=== PATIENT | male | born 1975 | race Caucasian/White ===

== ENCOUNTER 2021-01-09 08:53 | Outpatient (CLI) | payer BC, SELFPAY ==
--- NOTE | 2021-01-09 09:30 | ECG_ITS ---
Measurements Intervals [place] Rate: 57 P: 51 HI: 172 QRS: 62 QRSD: 92 T: 37 QT: 372 QTc: 365 Interpretive Statements SINUS BRADYCARDIA DELAYED PRECORDIAL R/S TRANSITION NONSPECIFIC ST ELEVATION IN ANTEROLATERAL LEADS BORDERLINE ECG Electronically Signed On 01-09-2021 10:40:42 CDT by Arslan Osullivan D.O.
== END 2021-01-09 08:54 | disposition home or self-care (01) ==
LOC: ANHSURGERY 08:55
PROVIDERS: PCP Family Medicine; Visit Provider Orthopaedic Surgery
DX: Z01.810 Encounter for preprocedural cardiovascular examination (principal); Z87.891 Personal history of nicotine dependence
CPT/HCPCS: 93005

== ENCOUNTER → 2021-01-12 06:33 | Outpatient (CLI) | payer BC, SELFPAY ==
[2021-01-12 19:16] LABS: SARS-CoV-2 RNA PCR Negative
== END ==
PROVIDERS: PCP Family Medicine; Visit Provider Orthopaedic Surgery
DX: Z01.812 Encounter for preprocedural laboratory examination (principal); Z20.822 Contact with and (suspected) exposure to COVID-19
CPT/HCPCS: C9803; U0003; U0005

== ENCOUNTER 2021-01-15 01:31 | Day surgery (SDC) | payer BC, SELFPAY ==
[2021-01-07 13:33] VITALS: BMI 28.2
--- NOTE | 2021-01-15 09:38 | WPDHPUPDATE1 ---
History and Physical Update Update Date/Time: 01/15/21 09:38 History and Physical has been reviewed, including an updated exam of the patient. There are NO changes in the patient's condition. Risks, benefits, and alternatives have been discussed and questions answered. Patient agrees to proceed with procedure.
--- NOTE | 2021-01-15 10:59 | PM.PROC ---
Procedure Note - Detailed Date of procedure: 01/15/21 Pre-op diagnosis: Right Fifth Trigger Finger Post-op diagnosis: other Procedure performed: Trigger finger release, right fifth. Anesthesia: GLMA and local Surgeon: Cuong Garcia MD Estimated blood loss (mL): 1 Complications: No immediate complications Condition: stable Disposition: PACU Findings: Sedation with general anesthetic was given. The hand was prepped and draped in the usual sterile fashion with a tourniquet was applied to the arm and well-padded. The limb was exsanguinated and the tourniquet inflated to 250 millimeters of mercury. 0.5% Marcaine with epinephrine was injected at the incision site. 2 milliliters were utilized. A longitudinal incision was created over the A1 luly subcutaneous dissection was carried out bluntly. The A1 luly was identified and visualized. It was released with the dissection scissors longitudinally. The tourniquet was released. The wound was closed with horizontal mattress Prolene suture 3-0. A sterile bulky dressing was applied. The patient was brought to the recovery room in stable condition. There were no complications.
[2021-01-15 11:25] VITALS: BP 108/68; PULSE 58; RESP 16; TEMP 36.3; O2SAT 100
[2021-01-15] MEDS: ACETAMINOPHEN 500 MG TABLET 1000 MG PO (11:50)
[2021-01-15] MEDS: LACTATED RINGERS 1,000 ML 30 ML IV CONT (11:50)
[2021-01-15] MEDS: KETOROLAC 15 MG/ML VIAL (*BKC) IV PUSH (11:51)
--- NOTE | 2021-01-15 11:59 | WPDANESEPPF ---
Anes - Initial Pre Proc Eval Procedure: Operation Date: 01/15/21 12:30 Proposed Procedures p Right Fifth Trigger Finger Release - Cuong Garcia MD Date/Time: 01/15/21 11:59 Surgeon: Cuong Garcia MD Pre Op Diagnosis: Right Fifth Trigger Finger Patient Data Age: 45 Gender: M Height: 1.88 m Weight: 90.2 kg Last Vital Signs Temp 36.3 C L 01/15/21 11:25 Pulse 58 L 01/15/21 11:25 Resp 16 01/15/21 11:25 BP 108/68 01/15/21 11:25 Pulse Ox 100 01/15/21 11:25 Allergies Allergy/AdvReac Type Severity Reaction Status Date / Time No Known Allergies Allergy Verified 01/15/21 10:51 Home Medications Medication Instructions Recorded Confirmed Type No Home Medications 01/07/21 01/07/21 History Patient hx anesthesia problems: none Family hx anesthesia problems: none PMFSH Past Medical History Medical History (Updated 01/14/21 @ 09:37 by Floyd Avery DO) Acquired trigger finger of right little finger CHASE (obstructive sleep apnea) Parsonage-Dove syndrome Plantar fasciitis Umbilical hernia Surgical History Surgical History (Updated 05/15/20 @ 13:49 by Daphne Narayan) History of arthroscopy of knee (~2011) History of left knee surgery (~2012) Tibial Tubercle Osteotomy History of removal of retained hardware (~2012) Lt Knee History of right knee surgery (~05/22/17) Micro Fracture - Rt Family History Family History (Updated 05/15/20 @ 13:51 by Daphne Narayan) Unknown No problems noted. Social History Social History (Updated 05/15/20 @ 13:51 by Daphne Narayan) Smoking packs per day: 1 Smoking cigarettes per day: 20.0 Years smoked: 25 Smoking pack-years: 25.00 Smoking status: Current every day smoker Tobacco type: cigarettes Alcohol intake: never Substance use: never Substance use type: does not use Living arrangements: with family Spiritual care concerns: No Anes - Eval Final PreProcedure Day of Procedure 01/15/21 11:59 Patient weight: overweight Heart: regular rate and rhythm Lungs: clear to auscultation and normal air movement Airway: Mallampati scale class II Neurological: alert and oriented Last oral intake: >/= 8 hours ASA classification: III Emergent: no Anesthetic plan: proceed Anesthesia type and monitoring: general GIVS and standard monitoring Informed Consent: The patient's anesthetic plan and its attendant risks and benefits were discussed with the patient/family/POA. Questions were solicited and answers provided to the satisfaction of the patient/family/POA.
[2021-01-15 13:10] VITALS: BP 96/65; PULSE 61; RESP 16; O2SAT 96
[2021-01-15 13:40] VITALS: BP 108/76; PULSE 56; RESP 20
[2021-01-15 14:10] VITALS: BP 105/75; PULSE 52; RESP 20
== END 2021-01-15 14:33 | disposition home or self-care (01) ==
PROVIDERS: PCP Family Medicine; Visit Provider Orthopaedic Surgery
PROC: (CPT 26055; principal; 2021-01-15 12:30)
DX: M65.351 Trigger finger, right little finger (principal); G47.33 Obstructive sleep apnea (adult) (pediatric); G54.5 Neuralgic amyotrophy; F17.210 Nicotine dependence, cigarettes, uncomplicated
CPT/HCPCS: 26055; 93005; A9270; C9803; J1885; J2250; J2405; J2704; J3010; J7120; U0003; U0005

== ENCOUNTER 2022-06-19 07:24 | Outpatient (CLI) | payer OTHER, SELFPAY ==
--- NOTE | 2022-07-14 10:32 | WPDHOMESLEEP ---
Sleep Study - Home Unattended Date of Study: 06/19/22 Ordering Provider: Zofia Baca NP Interpreting Provider: Lillie Lr, DO Home Sleep Study Type: Watch PAT Height: 1.88 m Weight: 81.647 kg Body Mass Index: 23.1 Neck Circumference (inches): 14.75 Sharples: 12 Reason for Sleep Study Unrefreshing sleep, morning headaches and daytime hypersomnia. Sleep History The patient is a 47-year-old male with hypogonadism, parsonage Dove syndrome and tobacco use had a sleep study ordered by his primary care for evaluation of sleep apnea. He denies awakening from sleep short of breath. He rarely awakens at night with heartburn, belching or cough. He constantly snores loud enough others complain. He occasionally has trouble sleeping when he has a cold. He denies waking up gasping for air throughout the night. He occasionally has breathing problems at night observed by himself or others. He rarely sweats excessively at night. He denies having heart palpitations or irregular heartbeats during the night. He constantly falls asleep during the day but never while driving. He denies sleep paralysis and cataplexy. He constantly has trouble at school or work due to sleepiness. Constantly experiences vivid dreamlike scenes upon awakening or falling asleep. He denies feeling afraid of going to sleep. He constantly has nightmares. He frequently remembers his dreams. He frequently has thoughts racing through his mind. He occasionally feels sad or depressed. He frequently has anxiety. He denies having muscular tension. He rarely notices parts of his body jerk. He denies kicking during the night. He denies having crawling and aching feelings in his legs but occasionally has leg pain during the night. He denies grinding his teeth during sleep and denies awakening with morning jaw pain. He denies being bothered by pain during the day and denies being awakened by pain during the night. He occasionally wakes up feeling stiff. He denies waking up with sore or achy muscles. He denies waking up with pain, spine or other joints. He goes to bed at 10:00 p.m. on both weekdays and weekends. It takes him 5 minutes to fall asleep. He wakes up twice throughout the night due to his dreams or nightmares but woke. He is able to fall back asleep within a few minutes. He wakes up at 4:30 a.m. on weekdays and at 6:00 a.m. on the weekends. He typically gets 6 hours of sleep per night. He will stay in bed for a few minutes after waking up in the. He currently lives with his significant other and son. He does not consume any caffeinated beverages within 2 hours of bedtime. He does engage in physical exercise before bedtime. He will read before falling asleep. He will take naps in the afternoon or the evening and they are refreshing. He drinks 5 caffeinated beverages per day. He currently smokes 1 pack of cigarettes per day. He denies alcohol and recreational drug use. [facility] Past Medical History Medical History Acquired trigger finger of right little finger Encounter to establish care Hypersomnia Hypogonadism CHASE (obstructive sleep apnea) Parsonage-Dove syndrome Parsonage-Dove syndrome Plantar fasciitis Skin lesion of scalp Snoring Tobacco dependence Umbilical hernia Surgical History Surgical History History of arthroscopy of knee (~2011) History of left knee surgery (~2012) Tibial Tubercle Osteotomy History of removal of retained hardware (~2012) Lt Knee History of right knee surgery (~05/22/17) Micro Fracture - Rt Family History Family History Father Diabetes mellitus Hypertension Acute myocardial infarction Mother Family history of malignant neoplasm of breast in first degree relative Unknown No problems noted. Other Family history of malignan
[2022-07-14 10:46] VITALS: BMI 23.1
== END 2022-06-24 14:53 | disposition home or self-care (01) ==
PROVIDERS: PCP Nurse Practitioner Family; Visit Provider Nurse Practitioner Family
DX: G47.10 Hypersomnia, unspecified (principal); R06.83 Snoring
CPT/HCPCS: 95800

== ENCOUNTER 2022-10-25 07:48 | Outpatient (CLI) | payer OTHER, SELFPAY ==
--- NOTE | 2022-10-25 08:06 | ECG_ITS ---
Measurements Intervals [place] Rate: 48 P: 60 MA: 180 QRS: 76 QRSD: 86 T: 49 QT: 392 QTc: 351 Interpretive Statements SINUS BRADYCARDIA EARLY REPOLARIZATION [ST ELEVATION WITH NORMALLY INFLECTED T WAVE] NO PREVIOUS ECG AVAILABLE FOR COMPARISON Electronically Signed On 10-25-2022 8:41:32 VINYL INSTALLER by Elida Eddy M.D.
== END 2022-10-25 07:49 | disposition home or self-care (01) ==
PROVIDERS: PCP Nurse Practitioner Family; Visit Provider Anesthesiology
DX: Z01.818 Encounter for other preprocedural examination (principal); F17.210 Nicotine dependence, cigarettes, uncomplicated
CPT/HCPCS: 93005

== ENCOUNTER 2022-11-04 00:16 | Day surgery (SDC) | payer OTHER, SELFPAY ==
[2022-10-21 14:52] VITALS: BMI 23.7
--- NOTE | 2022-10-21 14:58 | PC.NURSE ---
Report to the Outpatient Waiting Room, entrance under the green pavilion located off [facility], at time 11:30 on date 11/04/22. Planned Procedure Time: 1:30. Time changes happen often and if your time is changed the preop area will call you the afternoon before. - You and your visitor will be asked to self-screen and do not enter if you have any COVID symptoms. - Only one visitor is requested with a max of two and NO children visitors are allowed at this time. - The patient visitor may be requested to leave or wait in car when not with patient due to distancing restrictions. - A mask is optional within the hospital at this time. Patients may have clear liquids (water, carbonated beverages, clear teas, apple juice) until 3 hours prior to surgery (10:30) with a maximum of 20 ounces. - No food from midnight until time of surgery Take the following medications with a SIP of water the morning of surgery: NONE DO NOT STOP ANY OF YOUR OTHER PRESCRIPTION MEDICATIONS PRIOR TO SURGERY EXCEPT THE FOLLOWING Medications to discontinue per physician: VITAMINS/SUPPLEMENTS Date to take last dose: 10/31/22 Please no make-up, nail costa rican, hairspray, perfume, deodorant, or body powder the day of surgery. No jewelry (including any body piercings) or valuables the day of surgery, leave them at home. Please take a shower or bath the night before, or the morning of, surgery with an antibacterial soap. Wear comfortable, loose fitting clothing. - Jewelry must be removed prior to entering the operating room. Rings and piercings that are not removed may be cut off. - The hospital will not accept responsibility for valuables. - Please leave all valuables, including medications, at home the day of surgery. If you are going home after surgery, a licensed gas truck driver must drive you home. - NO public transportation without another adult if you receive anesthesia. - We recommend that an adult stay with you for 24 hours following discharge. - We also recommend that you do not drive, make important decision, drink alcoholic beverages, or take any drugs that were not prescribed by your health care provider for at least 24 hours after your discharge time. Follow any additional instructions given to you from your surgeon. If you or anyone in your household have experienced Covid symptoms in the past week, please notify your surgeon or the nurse liaison at the phone number below for possible testing. Telephone instructions given to PT - KALI MERCDEES and asked if any additional questions and then verbalized understanding. Patient advised to call surgeon office or pre surgery nurse liaison [phone] if any additional questions.
[2022-11-04] VITALS (8 sets, daily range): BP systolic 107–140; BP diastolic 64–95; PULSE 53–91; RESP 14–16; TEMP 36.4–36.6; O2SAT 99–100
[2022-11-04] MEDS: ACETAMINOPHEN 500 MG TABLET 1000 MG PO (11:53)
[2022-11-04] MEDS: LACTATED RINGERS 1,000 ML 30 ML IV CONT ×2 (12:00→14:17)
--- NOTE | 2022-11-04 12:14 | WPDANESEPPF ---
Anes - Initial Pre Proc Eval Procedure: Operation Date: 11/04/22 13:30 Proposed Procedures p Arthroscopic Partial Lateral Meniscectomy and Debridement Right Knee - Cuong Garcia MD Date/Time: 11/04/22 12:14 Surgeon: Cuong Garcia MD Pre Op Diagnosis: internal derangement, lat menisc tear rt knee Patient Data Age: 47 Gender: M Height: 1.88 m Weight: 84.4 kg Last Vital Signs Temp 97.8 F 11/04/22 12:05 Pulse 72 11/04/22 12:05 Resp 16 11/04/22 12:05 BP 112/69 11/04/22 12:05 Pulse Ox 99 11/04/22 12:05 O2 Del Method Room Air 11/04/22 12:05 Allergies Allergy/AdvReac Type Severity Reaction Status Date / Time No Known Allergies Allergy Verified 11/04/22 11:43 Home Medications Medication Instructions Recorded Confirmed Type cholecalciferol (vitamin D3) 250 250 mcg PO DAILY 05/01/22 10/21/22 History mcg (10,000 unit) capsule testosterone cypionate 200 mg/mL 250 mg IM WEEKLY 05/01/22 10/21/22 History intramuscular oil Patient hx anesthesia problems: none Family hx anesthesia problems: none Results Review: All pre-operative results and documents have been reviewed as part of the pre-operative evaluation. [facility] Past Medical History Medical History Acquired trigger finger of right little finger Encounter to establish care Hypersomnia Hypogonadism CHASE (obstructive sleep apnea) Parsonage-Dove syndrome Parsonage-Dove syndrome Plantar fasciitis Skin lesion of scalp Snoring Tobacco dependence Umbilical hernia Surgical History Surgical History History of arthroscopy of knee (~2011) History of left knee surgery (~2012) Tibial Tubercle Osteotomy History of removal of retained hardware (~2012) Lt Knee History of right knee surgery (~05/22/17) Micro Fracture - Rt Family History Family History Father Diabetes mellitus Hypertension Acute myocardial infarction Mother Family history of malignant neoplasm of breast in first degree relative Unknown No problems noted. Other Family history of malignant neoplasm Social History Social History (Updated 10/10/22 @ 08:47 by Winnie Boss MA) Smoking packs per day: 1 Smoking cigarettes per day: 20.0 Years smoked: 25 Smoking pack-years: 25.00 Smoking status: Current every day smoker Tobacco type: cigarettes Second hand tobacco smoke exposure: No Smoking end date: 09/14/16 Alcohol intake: never Substance use: never Substance use type: does not use Lack of Transportation: No Lack of Food: Never True Current Housing: I Have Housing Concerned About Future Housing: No Difficulty Paying Gas/Electric Bills: No Difficulty Paying for Meds: No Currently Unemployed: No Education: High School Diploma/GED Difficulty w/ Childcare or Family Care: No Living arrangements: with family Spiritual care concerns: No Anes - Eval Final PreProcedure Day of Procedure 11/04/22 12:14 Patient weight: normal Heart: regular rate and rhythm Lungs: clear to auscultation Airway: Mallampati scale class II Neurological: alert and oriented Last oral intake: >/= 8 hours ASA classification: II Emergent: no Anesthetic plan: proceed Anesthesia type and monitoring: general LMA and standard monitoring Results Review: All pre-operative results and documents have been reviewed as part of the pre-operative evaluation. Informed Consent: The patient's anesthetic plan and its attendant risks and benefits were discussed with the patient/family/POA. Questions were solicited and answers provided to the satisfaction of the patient/family/POA.
[2022-11-04] MEDS: KETOROLAC 15 MG/ML VIAL (*BKC) IV PUSH (12:42)
--- NOTE | 2022-11-04 12:59 | WPDHPUPDATE1 ---
History and Physical Update Update Date/Time: 11/04/22 12:59 History and Physical has been reviewed, including an updated exam of the patient. There are NO changes in the patient's condition. Risks, benefits, and alternatives have been discussed and questions answered. Patient agrees to proceed with procedure.
[2022-11-04] MEDS: ceFAZolin 2 GM/D5W 50 ML 2 GM/50 ML BAG IVPB (13:14)
[2022-11-04] MEDS: BUPIVACAINE/EPINEPHRINE 0.5% 10 ML VIAL 20 ML INFILTRATE (13:42)
--- NOTE | 2022-11-05 13:02 | P.OP_ITS ---
Procedure Note - Detailed Date of Procedure 11/04/22 Pre-op Diagnosis internal derangement, lat menisc tear rt knee Post-op Diagnosis Other (1. Medial and lateral meniscus tears 2. Medial femoral condyle osteochondral defect 3. Patellofemoral chondromalacia ) Procedure Performed 1. Arthroscopic partial medial and lateral meniscectomy 2. Arthroscopic microfracture of medial femoral condyle defect 1.5 cm diameter. 3. Patellar chondral plasty Surgeon Cuong Garcia MD Anesthesia General Findings Significant defect noted in the medial femoral condyle. Full-thickness cartilage fraying and after debridement a 1.5 cm diameter defect which was contained was confirmed. Microfracture was performed with the microfracture awls. Good bone marrow and bleeding was confirmed after release of the tourniquet. Grade 2/Iii chondromalacia of the patella. Previous healed microfracture of the trochlea looked good. Patellar tracking was good. Lateral cartilage showed only minimal chondromalacia. Inner margin fraying of the lateral meniscus consistent with the MRI findings. The medial meniscus had tearing and fraying of the anterior horn were appeared to be impinging on the osteochondral defect. This was also treated with partial meniscectomy. Description of Procedure The patient was identified and the surgical site confirmed and signed in the preoperative holding area. Antibiotics were started per protocol. She was brought to the operative room and transferred to the OR table. A general anesthetic was administered. Supine position with the operative lower extremity position in the leg messer after placement of a well padded tourniquet. The leg support was lowered and the contralateral limb was supported with a soft bolster. The knee was prepped and draped in the usual sterile fashion. A time- out was performed. The portal sites were marked and infiltrated with 0.5% Marcaine 20 mL. The limb was exsanguinated and the tourniquet inflated to 300 mL Hg. Standard inferolateral and inferomedial portals were established. Inflow was obtained with the saline pump. The camera was introduced. Diagnostic inspection of the joint was accomplished. The menisci were debrided with the arthroscopic shaver and punches until stable. The radiofrequency probe was also used for further d?bridement. Gentle chondroplasty was performed primarily at the patella. The medial femoral condyle defect was at the weight-bearing portion. It was well circumscribed and demarcated. 1.5 cm diameter. The curette was used to freshen the edges to a nice firm order. The defect was taken down to subchondral bone. Microfracture was performed with the 45 degree awl impacted to the appropriate depth. Proximally 5 microfracture holes were created. Good confirmation of bone and bone marrow from the holes was confirmed after release of the tourniquet. The arthroscopic instruments were removed. The tourniquet released and wounds closed with subcutaneous 4-0 Monocryl absorbable suture. Steri strips and a sterile dressing were applied. A light elastic wrap was placed. The patient was extubated and brought to the recovery room in stable condition. Estimated Blood Loss 5 Drains No Complications No immediate complications Condition Stable Disposition PACU [facility] Billing Surgery - Charge Forward: Surgery Billing
== END 2022-11-04 15:57 | disposition home or self-care (01) ==
PROVIDERS: PCP Nurse Practitioner Family; Visit Provider Orthopaedic Surgery
PROC: (CPT 29870; principal; 2022-11-04 13:30)
DX: S83.281A Other tear of lateral meniscus, current injury, right knee, initial encounter (principal); S83.241A Other tear of medial meniscus, current injury, right knee, initial encounter; M23.8X1 Other internal derangements of right knee; M22.41 Chondromalacia patellae, right knee; X50.0XXA Overexertion from strenuous movement or load, initial encounter; Y93.B3 Activity, free weights; G47.33 Obstructive sleep apnea (adult) (pediatric); G54.5 Neuralgic amyotrophy; E29.1 Testicular hypofunction; Z79.890 Hormone replacement therapy; F17.210 Nicotine dependence, cigarettes, uncomplicated
CPT/HCPCS: 29880; 29879; 93005; A9270; J0690; J1100; J1885; J2250; J2370; J2405; J2704; J3010; J7120

== ENCOUNTER 2023-09-28 14:46 | Emergency (ER) | payer OTHER, SELFPAY ==
[2023-09-28 14:52] VITALS: BP 131/80; PULSE 81; RESP 20; TEMP 37.3; O2SAT 100
--- NOTE | 2023-09-28 14:54 | ED.GENADULT ---
HPI - General Adult General Stated complaint: Took Covid test/came back positive Source: patient, RN notes reviewed and old records reviewed Mode of arrival: ambulatory Limitations: no limitations History of Present Illness HPI narrative: 48-year-old male patient presents to [facility] with complaints sinus congestion, cough, myalgia, fatigue that started late Thursday night. Patient states symptoms are worsening and he now has mid to lower back pain patient did a COVID test today at home that was positive. Patient denies urinary symptoms. Related Data Home Medications Medication Instructions Recorded Confirmed No Home Medications 09/28/23 09/28/23 Allergies Allergy/AdvReac Type Severity Reaction Status Date / Time No Known Allergies Allergy Verified 09/28/23 15:05 Review of Systems Constitutional: Constitutional: Reports no additional constitutional complaints, Reports body ache(s), Denies chills, Reports fatigue, Denies fever(s) and Denies headache(s) Eyes: Eyes: Reports no additional eye complaints and Denies blurry vision ENT: Reports system reviewed and no additional complaints, except as documented, Denies vertigo, Denies dizziness, Denies ear discharge, Denies otalgia, Denies facial pain, Denies headache(s), Reports nasal congestion, Denies nasal discharge, Denies sinus pain, Reports sinus pressure and Denies sore throat Cardiovascular: Cardiovascular: Reports no additional cardiovascular complaints, Denies chest pain, Denies chest pain at rest, Denies rapid heart rate and Denies dyspnea Respiratory: Respiratory: Reports no additional respiratory complaints, Denies chest congestion, Reports cough, Denies pain on inspiration, Denies pain with cough and Denies dyspnea Gastrointestinal: Gastrointestinal: Denies abdominal pain, Denies diarrhea, Denies nausea and Denies vomiting Musculoskeletal: Musculoskeletal: Reports back pain Integumentary/Breasts: Skin/Breast: Denies rash Neurologic: Reports system reviewed and no additional complaints, except as documented, Denies vertigo, Denies dizziness and Denies headache(s) Endocrine: Endocrine: Denies fatigue [facility] Past Medical History Medical History Acquired trigger finger of right little finger Encounter to establish care Hypersomnia Hypogonadism CHASE (obstructive sleep apnea) Parsonage-Dove syndrome Parsonage-Dove syndrome Plantar fasciitis Skin lesion of scalp Snoring Tobacco dependence Umbilical hernia Surgical History Surgical History History of arthroscopic knee surgery (~11/06/22) Rt Knee Arthroscopic partial medial and lateral meniscectomy w/ microfracture of medial femoral condyle defect 1.5 cm diameter, Patellar chondral plasty History of arthroscopy of knee (~2011) History of left knee surgery (~2012) Tibial Tubercle Osteotomy History of removal of retained hardware (~2012) Lt Knee History of right knee surgery (~05/22/17) Micro Fracture - Rt Family History Family History Father Diabetes mellitus Hypertension Acute myocardial infarction Mother Family history of malignant neoplasm of breast in first degree relative Unknown No problems noted. Other Family history of malignant neoplasm Social History Social History Smoking packs per day: 1 Smoking cigarettes per day: 20.0 Years smoked: 25 Smoking pack-years: 25.00 Smoking status: Current every day smoker Tobacco type: cigarettes Second hand tobacco smoke exposure: No Smoking end date: 09/14/16 Alcohol intake: never Substance use: never Substance use type: does not use Lack of Transportation: No Lack of Food: Never True Current Housing: I Have Housing Concerned About Future Housing: No Difficulty Paying Gas/[employer]
== END 2023-09-28 15:10 | disposition home or self-care (01) ==
PROVIDERS: Emergency Provider Registered Nurse; PCP Family Medicine
DX: U07.1 COVID-19 (principal); Z87.891 Personal history of nicotine dependence
CPT/HCPCS: 99211; G0463

== ENCOUNTER 2023-11-04 11:29 | Emergency (ER) | payer OTHER, SELFPAY ==
--- NOTE | ~2023-11-04 | XR_ITS ---
EXAMINATION: XR tibia fibula LT 2V INDICATION: Left leg pain TECHNIQUE: Two views of the left tibia and fibula are obtained on four radiographs. COMPARISON: None available FINDINGS: Bone alignment is normal. There is no fracture. The soft tissues are unremarkable. IMPRESSION: 1. No acute osseous abnormality. Reviewed, dictated and finalized at location B. [facility]
--- NOTE | 2023-11-04 11:30 | ED.LOWEXIN ---
HPI - Extremity Injury (Lower) General Chief Complaint: Extremity Injury, Lower Stated Complaint: Left Leg Injury Source: patient and RN notes reviewed Mode of arrival: ambulatory Limitations: no limitations History of Present Illness HPI Narrative: Patient is a 48-year-old male who presents with a left anterior lower leg pain. He states that this pain has been present for the last 2-3 weeks. Patient states that he took a bad step into a sink all approximately 2-3 weeks ago. He has had continuous pain since that incident. He also has tenderness upon palpation. There is notable swelling surrounding the tender area. He is neurovascularly intact distally. He denies any other injury during the incident. Denies falling, hitting head, loss of consciousness. Related Data Home Medications Medication Instructions Recorded Confirmed No Home Medications 09/28/23 11/04/23 Allergies Allergy/AdvReac Type Severity Reaction Status Date / Time No Known Allergies Allergy Verified 09/28/23 15:05 Review of Systems Review of Systems: CONSTITUTIONAL: Denies fever, chills, or sweats. EYES: Denies visual changes, redness, or discharge. ENT: Denies otalgia and sore throat CARDIOVASCULAR: Denies chest pain, palpitations, or edema. RESPIRATORY: Denies cough or dyspnea. GASTROINTESTINAL: Denies abdominal pain, nausea, vomiting, or diarrhea. GENITOURINARY: Denies dysuria or hematuria. SKIN: Denies rash or itching. MUSCULOSKELETAL: Denies back pain or myalgia. Reports left anterior lower leg pain. NEUROLOGIC: Denies headache, numbness, or weakness. Pertinent positives per HPI. [facility]LY [facility] Past Medical History Medical History Acquired trigger finger of right little finger Encounter to establish care Hypersomnia Hypogonadism CHASE (obstructive sleep apnea) Parsonage-Dove syndrome Parsonage-Dove syndrome Plantar fasciitis Skin lesion of scalp Snoring Tobacco dependence Umbilical hernia Surgical History Surgical History History of arthroscopic knee surgery (~11/06/22) Rt Knee Arthroscopic partial medial and lateral meniscectomy w/ microfracture of medial femoral condyle defect 1.5 cm diameter, Patellar chondral plasty History of arthroscopy of knee (~2011) History of left knee surgery (~2012) Tibial Tubercle Osteotomy History of removal of retained hardware (~2012) Lt Knee History of right knee surgery (~05/22/17) Micro Fracture - Rt Family History Family History Father Diabetes mellitus Hypertension Acute myocardial infarction Mother Family history of malignant neoplasm of breast in first degree relative Unknown No problems noted. Other Family history of malignant neoplasm Social History Social History Smoking packs per day: 1 Smoking cigarettes per day: 20.0 Years smoked: 25 Smoking pack-years: 25.00 Smoking status: Current every day smoker Tobacco type: cigarettes Second hand tobacco smoke exposure: No Smoking end date: 09/14/16 Alcohol intake: never Substance use: never Substance use type: does not use Lack of Transportation: No Lack of Food: Never True Current Housing: I Have Housing Concerned About Future Housing: No Difficulty Paying Gas/Electric Bills: No Difficulty Paying for Meds: No Currently Unemployed: No Education: High School Diploma/GED Difficulty w/ Childcare or Family Care: No Living arrangements: with family Spiritual care concerns: No Comments At the time of my signature, I reviewed and agree with the nursing past medical, surgical, social, and family history. There is no relevant family history pertinent to the patient complaint. Exam Narrative: GENERAL: This is a well-nourished, well-developed p
[2023-11-04 11:37] VITALS: BP 135/78; PULSE 70; RESP 14; TEMP 37.2; O2SAT 99
== END 2023-11-04 12:17 | disposition home or self-care (01) ==
PROVIDERS: Emergency Provider Nurse Practitioner; PCP Nurse Practitioner Family
DX: S80.12XA Contusion of left lower leg, initial encounter (principal); X58.XXXA Exposure to other specified factors, initial encounter
CPT/HCPCS: 73590; 99213; G0463